=== PATIENT | female | born 1985 | race Caucasian/White ===

== ENCOUNTER → 2023-12-31 09:28 | Outpatient (REF) | payer BC, SELFPAY | LOC: WDC 09:28 | PROVIDERS: ATTENDING PHYSICIAN Nurse Practitioner Family; FAMILY PHYSICIAN Family Medicine | DX: N64.4 Mastodynia (principal) | CPT/HCPCS: 76642; 77063; 77067 ==

== ENCOUNTER 2024-03-05 12:12 | Emergency (ER) | payer BC, SELFPAY ==
[2024-03-05 12:18] VITALS: BP 141/82
--- NOTE | 2024-03-05 12:52 | ED.GENMED ---
History of Present Illness
General
Chief Complaint: Chest Pain
Source: patient
Time Seen by Provider: 03/05/24 12:40
History of Present Illness
History of Present Illness:
38yoF with a history of bipolar disorder presenting for evaluation of chest pain. Patient reports intermittent palpitations for quite some time. Her palpitations have been constant for the past 3 days. She reports feeling the sensation of her heart
beat as well as skipped beats. Symptoms seem to be worse at nighttime and with laying flat. She also reports a dull central chest discomfort. She keeps feeling like she has to take a deep breath but denies any dyspnea. She reports being under a lot
of stress recently. She took a Xanax last night which did not help her symptoms. No syncope, nausea, vomiting, leg swelling, calf pain.
Past History
Past History
ED Past Medical History: GERD; Negative Arrthythmia or Asthma
ED Past Surgical History: Negative Appendectomy, Bowel resection or Brain
Social History
Tobacco: Non-smoker
Alcohol: None
Drug: None
Living: with family
Employment: Employed
Family History
Family History: Hypertension
Phy Exam
General Physical Exam
General Presentation: well appearing and no apparent distress
General age: appears stated age
General Skin: warm and dry
General Habitus: normal
General Mental: alert
General Hydration: appears well hydrated
ENT Exam
ENT Exam: normocephalic
Eye Exam
Eye Exam: conjunctiva normal
Cardiovascular Exam
Cardiovascular Exam: regular rate/rhythm and no murmur
Pulmonary Exam
Pulmonary Exam: lungs clear, no respiratory distress, no rales, no crackles, no rhonchi and no wheezing
Neurological Exam
Neurological Exam: alert
[place] Coma Scale
Eye Opening: Spontaneous
Verbal Response: Oriented
Motor Response: Obeys Commands
GCS Total Score: 15
Skin Exam
Skin Exam: normal color and warm/dry
Psychiatric Exam
Psychiatric Exam: normal mood/affect
Scores
Heart Score for Chest Pain Patients
STEMI patient?: No
History: Slightly or Non-Suspicious
ECG: Nonspecific Repolarization
Age: </= 45 years
Risk Factors: No Risk Factors
Troponin: </= Normal Limit
Heart Score for Chest Pain Patients: 1
Heart Score Risk: 2.5% MACE over next 6 weeks
Course
Orders/Labs/Results
Orders:
Orders
03/05/24 12:13
Electrocardiogram (*1) Urgent
Reason for Study: Chest Pain
EKG- Treatment ONCE
03/05/24 12:50
Cardiac Monitoring- Treatment ONCE
03/05/24 12:51
Test Result ONCE
CR Chest - 2 Views Urgent
Comment:
Reason For Exam: CP
03/05/24 13:04
Complete Blood Count/With Diff Urgent
Comprehensive Metabolic Panel Urgent
HCG, Serum Qualitative Screen Urgent
Magnesium Urgent
TSH Reflex To Free T4 Urgent
Troponin I Urgent
Abnormal Lab Results
03/05/24
13:04
RBC 3.82 L 10^6/uL
(4.20-5.40)
Hct 34.9 L %
(37.0-47.0)
MCH 31.7 H pg
(27.0-31.0)
BUN 6 L mg/dl
(7-17)
03/05/24 13:04
03/05/24 13:04
Vital Signs
Initial and Last Documented VS:
Initial Vital Signs
Temp Pulse Resp BP Pulse Ox
97.7 F 79 18 141/82 100
03/05/24 12:18 03/05/24 12:18 03/05/24 12:18 03/05/24 12:18 03/05/24 12:18
Last Documented Vital Signs
Temp Pulse Resp BP Pulse Ox
97.7 F 88 21 107/79 100
03/05/24 12:18 03/05/24 14:45 03/05/24 14:45 03/05/24 14:00 03/05/24 14:45
MDM/Problems Addressed
Differential Diagnosis Includes:
38yoF here with palpitations and dull central chest discomfort x 4 days. She is mildly hypertensive in triage with otherwise normal vital signs. She is well appearing in no distress. Exam is reassuring. Differential diagnosis includes but is not
limited to: arrhythmia, electrolyte abnormality, thyroid dysfunction, anxiety, less likely ACS
Initial ED plan: Check cardiac labs, magnesium, TSH, EKG, and CXR.
*EKG
Interpreted by ED Provider?: Yes
EKG Intrepretation Date: 03/05/24
Heart Rate: 82
Rate: normal
Rhythm: sinus
Jackson: normal axis
Interval: normal interval
QRS Pattern: normal QRS
Ischemia: non-specific ST changes
*Critical Care Note
Total Time (30-74mins, 75-104mins- exclusive of procedures): Not Applicable
Update Note
Update Note:
EKG shows NSR with nonspecific ST/T wave changes. No ectopy noted. Troponin WNL. Remainder of labs unremarkable including normal electrolytes and TSH. CXR is clear. No telemetry events during ED stay. No indication for hospitalization. Advised close
f/u with PCP for consideration of outpatient Holter monitor. ED return precautions discussed. She expressed understanding and is agreement with plan. She was discharged in stable condition.
ED Attending Note
-
Portions of this chart may have been created with voice recognition software.� Occasional wrong word or��sound alike� substitutions may have occurred due to the inherent limitations of voice recognition software.
Discharge Plan
Departure
Patient Disposition: Home (Routine Discharge)
Date of Disposition: 03/05/24
Time of Disposition: 14:33
Patient with high blood pressure during this ER visit?: No
Discharge Problem:
Palpitations, Chest pain
Instructions: Chest Pain PCP Follow Up
Prescriptions:
No Action
oxycodone-acetaminophen 5 MG/325 MG tablet
1 tab PO Q4HPRN PRN (Reason: moderate pain) Qty: 20 0RF
ibuprofen 600 MG tablet
600 mg PO Q4HPRN PRN (Reason: cramps) 0RF
Activity Restrictions/Additional Instructions:
Please call today to schedule a follow-up with your family doctor. Return to the ER with any new or worsening symptoms.
Interventions
Interventions:
*Risk Screen - Suicide Last Done: 03/05/24 12:18
*General Assessment Last Done: 03/05/24 12:25
*Neglect/Abuse Screening Last Done: 03/05/24 12:25
ED- Fall Risk Assessment Last Done: 03/05/24 14:57
*ED COVID-19 Vaccine History Last Done: 03/05/24 12:25
*Nursing Disposition Last Done: 03/05/24 14:57
ED- Cardiac Assessment Last Done: 03/05/24 14:57
Discharge Date and Time
Discharge Date/Time: 03/05/24 15:13
Print Language: ANGOLAN
[2024-03-05 13:00] VITALS: BP 110/75
[2024-03-05 13:13] LABS: % Basophils 0.3 % (0-2); % Eosinophils 1.5 % (0-6); % Immature Granulocytes 0.3 % (0-0.5); % Lymphocytes 38.8 % (20.5-51.1); % Monocytes 7.7 % (1.7-9.3); % Neutrophils 51.4 % (42.2-75.2); Absolute Eosinophils 0.1 10^3/uL (0-0.7); Absolute Lymphocytes 2.3 10^3/uL (1.2-3.4); Absolute Monocytes 0.5 10^3/uL (0.1-0.6); Absolute Neutrophils 3.1 10^3/uL (1.4-6.5); Hematocrit 34.9 % (37.0-47.0); Hemoglobin 12.1 g/dL (12.0-16.0); Mean Corp Hgb Conc. 34.7 g/dL (33.0-37.0); Mean Corpuscular Hgb 31.7 pg (27.0-31.0); Mean Corpuscular Volume 91.4 fL (81.0-99.0); Mean Platelet Volume 8.8 fL (7.4-10.4); Nucleated Red Blood Cells % 0 %; Platelet Count 231 10^3/uL (130-400); Red Blood Cell Count 3.82 10^6/uL (4.20-5.40); Red Cell Dist. Width 11.9 % (11.5-14.5)
[2024-03-05 13:40] LABS: ALT (SGPT) 19 U/L (0-35); AST (SGOT) 21 U/L (14-36); Albumin 4.2 g/dl (3.5-5.0); Alkaline Phosphatase 70 U/L (38-126); Blood Urea Nitrogen 6 mg/dl (7-17); Calcium 9.1 mg/dl (8.4-10.2); Carbon Dioxide 24 mmol/L (22-30); Chloride 104 mmol/L (98-107); Glucose 85 mg/dl (70-99); Magnesium 2.1 mg/dl (1.6-2.3); Potassium 4.3 mmol/L (3.5-5.1); Sodium 139 mmol/L (135-145); Total Bilirubin 0.3 mg/dl (0.2-1.3); Total Protein 6.9 g/dl (6.3-8.2); eGFR > 60.00
[2024-03-05 13:43] LABS: Troponin I < 0.012 ng/ml
[2024-03-05 13:49] VITALS: BP 122/85
[2024-03-05 13:51] LABS: HCG, Serum Qualitative Screen Negative
[2024-03-05 14:00] VITALS: BP 107/79
[2024-03-05 14:02] LABS: TSH Reflex To Free T4 2.58 uIU/ml (0.47-4.68)
== END 2024-03-05 15:13 | disposition home or self-care (01) ==
LOC: EMR 12:12
PROVIDERS: Physician Assistant; EMERGENCY PHYSICIAN Emergency Medicine; FAMILY PHYSICIAN Family Medicine
DX: R00.2 Palpitations (principal); R07.89 Other chest pain; F31.9 Bipolar disorder, unspecified; K21.9 Gastro-esophageal reflux disease without esophagitis; Z82.49 Family history of ischemic heart disease and other diseases of the circulatory system; Z90.49 Acquired absence of other specified parts of digestive tract
CPT/HCPCS: 99283; 71046; 80053; 83735; 84443; 84484; 84703; 85025; 93005

== ENCOUNTER → 2024-07-06 13:48 | Outpatient (REF) | payer BC, SELFPAY | LOC: WDC 13:48 | PROVIDERS: ATTENDING PHYSICIAN Nurse Practitioner Family; FAMILY PHYSICIAN Family Medicine | DX: R92.8 Other abnormal and inconclusive findings on diagnostic imaging of breast (principal) | CPT/HCPCS: 76642 ==

== ENCOUNTER → 2024-10-05 14:15 | Outpatient (REF) | payer BC, SELFPAY | LOC: RAD 14:15 | PROVIDERS: ATTENDING PHYSICIAN Obstetrics & Gynecology; FAMILY PHYSICIAN Family Medicine | DX: Z15.02 Genetic susceptibility to malignant neoplasm of ovary (principal) | CPT/HCPCS: 76830; 76856 ==

== ENCOUNTER → 2025-01-11 09:37 | Outpatient (REF) | payer BC, SELFPAY | LOC: WDC 09:37 | PROVIDERS: ATTENDING PHYSICIAN Obstetrics & Gynecology | DX: R92.8 Other abnormal and inconclusive findings on diagnostic imaging of breast (principal) | CPT/HCPCS: 76642 ==

== ENCOUNTER → 2025-01-20 17:27 | Outpatient (REF) | payer BC, SELFPAY | LOC: MRI 3T 17:27 | PROVIDERS: ATTENDING PHYSICIAN Nurse Practitioner Adult Health; FAMILY PHYSICIAN Family Medicine | DX: Z91.89 Other specified personal risk factors, not elsewhere classified (principal); R92.2 Inconclusive mammogram; Z15.89 Genetic susceptibility to other disease | CPT/HCPCS: 77049; A9585 ==

== ENCOUNTER → 2025-01-22 17:44 | Outpatient (REF) | payer BC, SELFPAY | LOC: MRI 17:44 | PROVIDERS: ATTENDING PHYSICIAN Obstetrics & Gynecology; FAMILY PHYSICIAN Family Medicine | DX: Z14.8 Genetic carrier of other disease (principal); R93.89 Abnormal findings on diagnostic imaging of other specified body structures | CPT/HCPCS: 72197; A9575 ==

== ENCOUNTER → 2025-03-19 14:52 | Outpatient (REF) | payer BC, SELFPAY | LOC: WDC 14:52 | PROVIDERS: ATTENDING PHYSICIAN Nurse Practitioner Adult Health; FAMILY PHYSICIAN Family Medicine | DX: R92.8 Other abnormal and inconclusive findings on diagnostic imaging of breast (principal); R92.2 Inconclusive mammogram; Z91.89 Other specified personal risk factors, not elsewhere classified | CPT/HCPCS: 76642 ==